=== PATIENT | male | born 1955 | race African-American/Black ===

== ENCOUNTER 2022-07-27 20:29 | Emergency (ER) | payer MEDICARE ==
[~2022-07-27] VITALS: Ht 170.2 cm; Wt 97.5 kg
[2022-07-27] MEDS ORDERED: HYDROCODONE/APAP 10MG-325MG TAB PO ONE (21:15)
[2022-07-27] MEDS ORDERED: HYDROCODONE/APAP 5MG-325MG TAB PO STA (21:32)
[2022-07-27] MEDS ORDERED: HYDROCODONE/APAP 5MG-325MG TAB ONE (21:34)
[2022-07-27] MEDS ORDERED: ZORVOLEX35 MG PO (21:55)
[2022-07-27 22:10] VITALS: BP 159/92
== END 2022-07-27 22:10 | disposition home or self-care (01) ==
LOC: FSED 20:39
DX: M25.562 Pain in left knee (principal); W18.39XA Other fall on same level, initial encounter; Y92.89 Other specified places as the place of occurrence of the external cause
CPT/HCPCS: 99283